=== PATIENT | male | born 1985 | race Caucasian/White ===

== ENCOUNTER → 2018-05-05 | Outpatient (CLI) | payer BC ==
[~2018-05-05] MED LIST: PEGFILGRASTIM 6 MG/0.6 ML SYRINGE SQ ONE
[2018-05-05 14:38] VITALS: BP 134/83; PULSE 86; RESP 16; TEMP 98.4
== END ==
LOC: PROCWHC3 14:00
PROVIDERS: ATTEND Psychiatry & Neurology Neurology
DX: C85.89 Other specified types of non-Hodgkin lymphoma, extranodal and solid organ sites (principal)
CPT/HCPCS: 96372; J2505

== ENCOUNTER → 2018-06-03 | Outpatient (CLI) | payer BC ==
[2018-06-03 17:14] LABS: HIV 1 AB Non-Reactive (Non-Reactive); HIV AB P24 Non-Reactive (Non-Reactive); HIV P24 AG Non-Reactive (Non-Reactive)
== END | disposition home or self-care (01) ==
LOC: LABWHC1 09:00
PROVIDERS: ATTEND Internal Medicine
DX: Z11.3 Encounter for screening for infections with a predominantly sexual mode of transmission (principal)
CPT/HCPCS: 36415; 87390

== ENCOUNTER → 2018-09-10 | Outpatient (CLI) | payer BC ==
--- NOTE | 2018-09-10 15:09 | US ---
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 EXAM MEASUREMENTS: Right Kidney: 12.1 X 4.3 X 5.4 cm Left Kidney: 11.2 X 5.4 X 5.4 cm Right Kidney: No hydronephrosis or masses seen Left Kidney: No hydronephrosis or masses seen Bladder: wnl There is no evidence for hydronephrosis at this point in time. No nephrolithiasis is seen. No deyanira s are identified. The urinary bladder is anechoic. Bilateral ureteral jets are seen. IMPRESSION: No acute process. If symptoms persist consider CAT scan.
== END | disposition home or self-care (01) ==
LOC: RADUSWWP 14:23
PROVIDERS: ATTEND Internal Medicine Medical Oncology
DX: C83.30 Diffuse large B-cell lymphoma, unspecified site (principal); R31.0 Gross hematuria; Z94.81 Bone marrow transplant status
CPT/HCPCS: 76770

== ENCOUNTER → 2018-09-11 | Outpatient (CLI) | payer BC ==
[2018-09-11 13:07] LABS: Amorphous Sediment,Urine Rare /hpf; Appearance,Urine Cloudy (Clear); Bacteria,Urine Occasional /hpf; Bilirubin,Urine Negative (Negative); Blood,Urine Moderate (Negative); Cellular Casts,Urine 4 /lpf (0); Color,Urine Yellow; Glucose,Urine (UA) Negative (Negative); Hyaline Casts,Urine 3 /lpf (0-2); Ketones,Urine Negative (Negative); Leukocyte Esterase,Urine Trace (Negative); Mucus,Urine Moderate /hpf; Nitrite,Urine Negative (Negative); Protein,Urine 2+ (Negative); RBC,Urine >182 /hpf (0-5); Specific Gravity,Urine 1.024 (1.001-1.035); Squamous Epithelial Cell,Urine <1 /hpf (0-4); Urobilinogen,Urine <2.0 mg/dL (<2.0); WBC,Urine 32 /hpf (0-5)
== END | disposition home or self-care (01) ==
LOC: LABWHC1 11:05
PROVIDERS: ATTEND Physician Assistant
DX: C83.30 Diffuse large B-cell lymphoma, unspecified site (principal); R31.0 Gross hematuria; Z91.81 History of falling
CPT/HCPCS: 81001; 87086